=== PATIENT | female | born 1960 | race Caucasian/White ===

== ENCOUNTER 2017-10-16 20:02 | Emergency (ER) | payer BC, OTHER ==
[2017-10-16] MEDS ORDERED: Adacel (T-DAP) 0.5 ML VIAL ONE ×2 (20:21→21:52)
[2017-10-16] MEDS ORDERED: Amoxicillin/Potassium Clav 875 MG TAB ONE (20:40)
[2017-10-16] MEDS ORDERED: Adacel (T-DAP) 0.5 ML VIAL IM ONE (20:45)
== END 2017-10-16 21:57 | disposition home or self-care (01) ==
LOC: BURERS 20:02
DX: S61.452A Open bite of left hand, initial encounter (principal); S61.412A Laceration without foreign body of left hand, initial encounter; I10 Essential (primary) hypertension; F17.210 Nicotine dependence, cigarettes, uncomplicated; Z79.899 Other long term (current) drug therapy; W54.0XXA Bitten by dog, initial encounter
CPT/HCPCS: 12002; 90471; 90715

== ENCOUNTER 2020-05-12 01:02 | Emergency (ER) | payer BC ==
[2020-05-12] MEDS ORDERED: Aspirin Chewable 81 MG TAB ONE (01:09)
[2020-05-12] MEDS ORDERED: Nitroglycerin 0.4 MG TAB 1 EACH ONE ×3 (01:09→01:40)
[2020-05-12 01:26] LABS: #Basophils 0.1 thou/uL (0.0-0.2); #Eosinphils 0.2 thou/uL (0.0-0.7); #Lymphocytes 2.9 thou/uL (1.20-3.40); #Monocytes 0.6 thou/uL (0.11-0.59); #Neutrophils 4.9 thou/uL (1.40-6.50); %Basophils 1.1 % (0.0-1.0); %Lymphocytes 33.6 % (21.0-51.0); %Monocytes 6.7 % (0.0-10.0); %Neutrophils 56.6 % (42.0-75.0); Hemoglobin 14.1 g/dL (12.0-16.0); Mean Corpuscular HGB CONC 31.2 g/dL (32.0-36.0); Mean Corpuscular Hemoglobin 30.3 pg (27.0-31.0); Mean Corpuscular Volume 97.3 fL (78.0-98.0); Mean Platelet Volume 9.5 fL (7.4-10.4); Platelet Count 183 thou/uL (130-400); RBC Distribution Width 12.3 % (11.5-14.5); Red Blood Cell (RBC) Count 4.64 mill/uL (4.20-5.40); White Blood Cell (WBC) Count 8.7 thou/uL (4.8-10.8)
[2020-05-12] MEDS ORDERED: Ondansetron PF 4 MG/2 ML Vial ONE (01:29)
[2020-05-12 01:34] LABS: ALT (SGPT) 11 U/L (8-55); AST (SGOT) 14 U/L (5-34); Albumin 4.2 g/dL (3.5-5.0); Alkaline Phosphatase 92 U/L (40-110); Anion Gap 16 mmol/L (10-20); BUN (Urea Nitrogen) 20 mg/dL (9.8-20.1); Bilirubin, Total 0.3 mg/dL (0.2-1.2); Calc. Creatinine Clearance 0 mL/min (70-130); Calcium 9.1 mg/dL (7.8-10.44); Carbon Dioxide 26 mmol/L (22-29); Chloride 105 mmol/L (98-107); Estimated GFR-MDRD 61; Globulin 3.1 g/dL (2.4-3.5); Glucose 106 mg/dL (70-105); Lipase 29 U/L (8-78); Potassium 3.8 mmol/L (3.5-5.1); Protein, Total 7.3 g/dL (6.0-8.3); Sodium 143 mmol/L (136-145)
[2020-05-12 01:34] LABS: Bilirubin Negative (Negative); Blood, Urine Trace (Negative); Clarity Clear (Clear); Glucose, Urine (Dipstick) Negative (Negative); Ketone, Urine Negative (Negative); Leukocyte Negative (Negative); Nitrite Negative (Negative); Protein, Urine (Dipstick) Trace mg/dL (Neg-Trace); Urobilinogen 0.2 mg/dL (Less than 2)
[2020-05-12] MEDS ORDERED: Acetaminophen 500 MG TAB ONE (01:38)
[2020-05-12 01:41] LABS: Bacteria/HPF None Seen HPF (None Seen); RBC/HPF 0-3 HPF (0-3); Squamous Epithelial None Seen HPF (0-3); WBC/HPF None Seen HPF (0-3)
[2020-05-12] MEDS ORDERED: Morphine 4 MG/ML VIAL ONE (01:48)
[2020-05-12] MEDS ORDERED: Nitroglycerin 2% Ointment 1 INCH/1 GM Packet ONE (01:56)
--- NOTE | 2020-05-12 06:59 | RAD ---
PORTABLE CHEST: Date: 05/12/2020 An AP portable film at 0129 hours is compared with the 11/08/2010 study. The heart is normal in size and the lungs are clear. No infiltrate or effusion seen. There is no vasc ular congestion or edema. Some bony spurring is seen in the AC joints. There may be some faint calcif ication in the aortic arch. IMPRESSION: No acute thoracic finding. POS: HOME
== END 2020-05-12 02:05 | disposition short-term general hospital (02) ==
LOC: BURERS 01:02
DX: I16.0 Hypertensive urgency (principal); I10 Essential (primary) hypertension; K21.9 Gastro-esophageal reflux disease without esophagitis; F32.9 Major depressive disorder, single episode, unspecified; F17.210 Nicotine dependence, cigarettes, uncomplicated; Z79.899 Other long term (current) drug therapy
CPT/HCPCS: 71045; 80053; 81003; 81015; 83690; 83880; 84484; 85025; 93005; 96374; 96375; J2270; J2405

== ENCOUNTER 2021-11-24 14:07 | Outpatient (CLI) | payer BC | END 2021-11-24 14:08 | disposition home or self-care (01) | LOC: BURRAD 14:07 | PROVIDERS: ATTEND Family Medicine | DX: M54.42 Lumbago with sciatica, left side (principal); M25.552 Pain in left hip; M51.36 Other intervertebral disc degeneration, lumbar region; M51.37 Other intervertebral disc degeneration, lumbosacral region; I70.90 Unspecified atherosclerosis; Q76.49 Other congenital malformations of spine, not associated with scoliosis | CPT/HCPCS: 72100 ==

== ENCOUNTER 2024-06-24 12:10 | Emergency (ER) | payer BC ==
[2024-06-24 12:36] LABS: #Basophils 0.1 thou/uL (0.0-0.2); #Eosinophils 0.1 thou/uL (0.0-0.7); #Lymphocytes 2.4 thou/uL (1.20-3.40); #Monocytes 1.1 thou/uL (0.11-0.59); #Neutrophils 10.3 thou/uL (1.40-6.50); %Lymphocytes 16.8 % (21.0-51.0); %Monocytes 7.8 % (0.0-10.0); %Neutrophils 73.4 % (42.0-75.0); Hemoglobin 14.5 g/dL (12.0-16.0); Mean Corpuscular HGB CONC 33.7 g/dL (32.0-36.0); Platelet Count 289 10x3/uL (130-400); RBC Distribution Width 10.7 % (11.5-14.5); Red Blood Cell (RBC) Count 4.83 mill/uL (4.20-5.40)
[2024-06-24] MEDS ORDERED: methylPREDNISolone Sod Succ/PF 125 MG/2 ML VIAL ONE (12:40)
[2024-06-24] MEDS ORDERED: Ipratropium/Albuterol 3 ML NEB ONE ×2 (12:41→13:51)
[2024-06-24 12:56] LABS: ALT (SGPT) 15 U/L (8-55); AST (SGOT) 12 U/L (5-34); Albumin 3.2 g/dL (3.4-4.8); Alkaline Phosphatase 79 U/L (40-110); Anion Gap 15 mmol/L (10-20); BUN (Urea Nitrogen) 15 mg/dL (9.8-20.1); Bilirubin, Total 0.6 mg/dL (0.2-1.2); Calc. Creatinine Clearance 0 mL/min (70-130); Calcium 9.4 mg/dL (7.8-10.44); Carbon Dioxide 23 mmol/L (23-31); Chloride 106 mmol/L (98-107); Estimated GFR 75; Globulin 3.8 g/dL (2.4-3.5); Glucose 115 mg/dL (80-115); Potassium 3.7 mmol/L (3.5-5.1); Sodium 140 mmol/L (136-145); Troponin I Less than 0.010 ng/mL (< 0.028)
[2024-06-24] MEDS ORDERED: Albuterol 2.5 MG (0.5 mL) NEB ONE (14:17)
[2024-06-24] MEDS ORDERED: Magnesium 2 GM/50 ML BAG (IN WATER) ONE (14:17)
== END 2024-06-24 16:04 | disposition home or self-care (01) ==
LOC: BURERS 12:10
DX: J44.1 Chronic obstructive pulmonary disease with (acute) exacerbation (principal); I10 Essential (primary) hypertension; I25.2 Old myocardial infarction; I25.10 Atherosclerotic heart disease of native coronary artery without angina pectoris; Z87.891 Personal history of nicotine dependence
CPT/HCPCS: 71046; 80053; 83605; 83880; 84484; 85025; 85379; 93005; 94760; 96365; 96375; J2919; J3475; J7611; J7620